=== PATIENT | female | born 1950 | race Asian ===

== ENCOUNTER 2018-07-14 06:11 | Day surgery (SDC) | payer MEDICARE, OTHER ==
[~2018-07-14] VITALS: Ht 144.8 cm; Wt 78.0 kg
[~2018-07-14 06:11] MED LIST: AMLO2.5T PO; ASPI81 PO; RINGERS SOLUTION,LACTATED 500 ML IV ONE
[2018-07-14] MEDS ORDERED: MIDAZOLAM HCL 2 MG/2 ML VIAL IVP ONE (06:12)
[2018-07-14] MEDS ORDERED: OFLOXACIN 0.3% 5 ML OPHTHALMIC SOLUTION ONE (06:13)
[2018-07-14] MEDS ORDERED: FLURBIPROFEN SODIUM 0.03% 2.5 ML OPHTHALMIC SOLUTION ONE (06:13)
[2018-07-14] MEDS ORDERED: TETRACAINE HCL/PF 0.5% 4 ML OPHTHALMIC SOLUTION ONE (06:13)
[2018-07-14] MEDS ORDERED: CYCLOPENTOLATE HCL 1% 2 ML OPHTHALMIC SOLUTION ONE (06:14)
[2018-07-14] MEDS ORDERED: PHENYLEPHRINE HCL 2.5% 2 ML OPHTHALMIC SOLUTION ONE (06:14)
[2018-07-14] MEDS ORDERED: TROPICAMIDE 1% 2 ML OPHTHALMIC SOLUTION ONE (06:14)
[2018-07-14] MEDS: OFLOXACIN 0.3% 5 ML OPHTHALMIC SOLUTION OS SCH ×3 (06:49→07:06)
[2018-07-14] MEDS: TROPICAMIDE 1% 2 ML OPHTHALMIC SOLUTION OS SCH ×3 (06:49→07:06)
[2018-07-14] MEDS: PHENYLEPHRINE HCL 2.5% 2 ML OPHTHALMIC SOLUTION OS SCH ×3 (06:50→07:06)
[2018-07-14] MEDS: CYCLOPENTOLATE HCL 1% 2 ML OPHTHALMIC SOLUTION OS SCH ×3 (06:50→07:06)
[2018-07-14] MEDS: FLURBIPROFEN SODIUM 0.03% 2.5 ML OPHTHALMIC SOLUTION OS SCH ×3 (06:50→07:06)
[2018-07-14] MEDS ORDERED: TETRACAINE HCL/PF 0.5% 4 ML OPHTHALMIC SOLUTION OS ONE (07:00)
[2018-07-14] MEDS ORDERED: HYALURONATE SOD/CHONDROITIN SOD 0.5 ML VIAL IO ONE (22:15)
[2018-07-14] MEDS ORDERED: POVIDONE-IODINE 10% 15 ML SOLUTION UD ONE (22:15)
[2018-07-14] MEDS ORDERED: HYALURONATE SODIUM 12 MG/ML 0.8 ML SYRINGE IO ONE (22:15)
[2018-07-14] MEDS ORDERED: EPINEPHrine 1:10,000 [1 MG/10 ML] SYRINGE ONE (22:15)
[2018-07-14] MEDS ORDERED: LIDOCAINE HCL 1% 20 ML VIAL ONE (22:15)
== END 2018-07-14 09:35 | disposition home or self-care (01) ==
LOC: SURGERY 06:11
PROVIDERS: ATTEND Ophthalmology
DX: H25.12 Age-related nuclear cataract, left eye (principal); I10 Essential (primary) hypertension; Z79.82 Long term (current) use of aspirin; Z91.040 Latex allergy status; Z91.048 Other nonmedicinal substance allergy status; Z98.890 Other specified postprocedural states; Z79.899 Other long term (current) drug therapy
CPT/HCPCS: 66984; 93005; C1780; J2250; J7120; J0171; J3490

== ENCOUNTER 2018-09-16 06:58 | Day surgery (SDC) | payer MEDICARE, OTHER ==
[~2018-09-16] VITALS: Ht 149.9 cm; Wt 78.2 kg
[~2018-09-16 06:58] MED LIST changes: -AMLO2.5T PO; +AMLO2.5T3 PO; +CYCLOPENTOLATE HCL 1% 2 ML OPHTHALMIC SOLUTION ONE; +KETOROLAC TROMETHAMINE 0.5% 5 ML OPHTHALMIC SOLUTION ONE; +OFLOXACIN 0.3% 5 ML OPHTHALMIC SOLUTION ONE; +PHENYLEPHRINE HCL 2.5% 2 ML OPHTHALMIC SOLUTION ONE; +TETRACAINE HCL/PF 0.5% 4 ML OPHTHALMIC SOLUTION ONE; +TROPICAMIDE 1% 2 ML OPHTHALMIC SOLUTION ONE
[2018-09-16] MEDS ORDERED: HYALURONATE SOD/CHONDROITIN SOD 0.5 ML VIAL IO ONE (06:59)
[2018-09-16] MEDS ORDERED: BALANCED SALT 15 ML OPHTHALMIC IRRIG.SOLN OD ONE (06:59)
[2018-09-16] MEDS ORDERED: LIDOCAINE/PF 1% 2 ML VIAL IM ONE (06:59)
[2018-09-16] MEDS ORDERED: HYALURONATE SODIUM 12 MG/ML 0.8 ML SYRINGE IO ONE (06:59)
[2018-09-16] MEDS ORDERED: EPINEPHrine 1:1,000 [1 MG/ML] AMP IM ONE (06:59)
[2018-09-16] MEDS ORDERED: POVIDONE-IODINE 10% 15 ML SOLUTION UD TP ONE (06:59)
[2018-09-16] MEDS ORDERED: TETRACAINE HCL/PF 0.5% 4 ML OPHTHALMIC SOLUTION OD ONE (07:00)
[2018-09-16] MEDS ORDERED: RINGERS SOLUTION,LACTATED 500 ML IV ONE (07:00)
[2018-09-16] MEDS: CYCLOPENTOLATE HCL 1% 2 ML OPHTHALMIC SOLUTION OD SCH ×3 (07:34→07:49)
[2018-09-16] MEDS: KETOROLAC TROMETHAMINE 0.5% 5 ML OPHTHALMIC SOLUTION OD SCH ×3 (07:34→07:49)
[2018-09-16] MEDS: TROPICAMIDE 1% 2 ML OPHTHALMIC SOLUTION OD SCH ×3 (07:34→07:48)
[2018-09-16] MEDS: OFLOXACIN 0.3% 5 ML OPHTHALMIC SOLUTION OD SCH ×3 (07:35→07:49)
[2018-09-16] MEDS: PHENYLEPHRINE HCL 2.5% 2 ML OPHTHALMIC SOLUTION OD SCH ×3 (07:35→07:49)
== END 2018-09-16 09:30 | disposition home or self-care (01) ==
LOC: SURGERY 06:58
PROVIDERS: ATTEND Ophthalmology
DX: H25.11 Age-related nuclear cataract, right eye (principal); I10 Essential (primary) hypertension; E66.9 Obesity, unspecified; Z79.01 Long term (current) use of anticoagulants; Z91.013 Allergy to seafood; Z98.42 Cataract extraction status, left eye; Z91.040 Latex allergy status; Z91.048 Other nonmedicinal substance allergy status; Z79.82 Long term (current) use of aspirin; Z68.34 Body mass index [BMI] 34.0-34.9, adult; Z79.899 Other long term (current) drug therapy; Z98.890 Other specified postprocedural states
CPT/HCPCS: 66984; C1780; J0171; J3490 ×2; J7120